=== PATIENT | female | born 1990 | race Caucasian/White ===

== ENCOUNTER 2024-12-19 10:37 | Emergency (ER) | payer OTHER, SELFPAY ==
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
[2024-12-19] VITALS (7 sets, daily range): BP systolic 105–120; BP diastolic 68–88; PULSE 62–100; RESP 16–22; TEMP 37; O2SAT 98–100; BMI 23.7
--- NOTE | 2024-12-19 11:06 | CRLHL7_ITS ---
For Patients: As a result of the Century Cures Act, medical imaging exams and procedure reports are released immediately into your electronic medical record. You may view this report before your referring provider. If you have questions, please contact your health care provider. Indication: Pelvic pain, vaginal bleeding, hx of ovarian torsion Technique: Real-time sonographic images of the pelvis were obtained transvaginally (for better assessment or to better visualize the endometrium) utilizing grayscale, color, and spectral doppler imaging. Comparison: None. Findings: Uterus: Appearance: Normal. Position: Retroflexed. Size: 6.7 x 3.7 x 5.0 cm. Endometrial stripe: 4 mm. Intrauterine device is seen within the endometrial cavity. Right ovary: Size: 5.8 x 2.1 x 2.9 cm. Appearance: Normal morphology. 1.4 x 1.2 x 1.3 centimeter hypoechoic lesion. 2.8 x 1.6 x 2.4 centimeter simple cyst. Preserved blood flow. Left ovary: Size: 4.0 x 1.9 x 1.8 cm. Appearance: Normal morphology. No masses. Preserved blood flow. Free fluid: Trace free fluid is seen anteriorly. Impression: 1. Intrauterine device is seen within the endometrial cavity. 2. 1.4 x 1.2 x 1.3 centimeter hypoechoic right ovarian lesion. Nonspecific cystic ovarian lesions suggestive of but not classic for hemorrhagic cyst, endometrioma or dermoid should be evaluated with repeat ultrasound in 6-12 weeks. If unchanged, hemorrhagic cyst would be unlikely, and continued follow-up with ultrasound or pelvic MRI would be recommended. Surgical consultation could also be considered for lesions that remain uncharacterized, particularly in postmenopausal patients. Adapted from Consensus Recommendations, Radiol:2010;256:943-955. 3. Normal sonographic appearance of the left ovary. Dictated by Sree Gilmore MD @ 12/19/2024 12:09:18 PM (Electronically Signed)
[2024-12-19 11:10] LABS: Appearance Urine Cloudy (Clear)
[2024-12-19] MEDS: ONDANSETRON 2 MG/ML inj 4 MG IVP (11:11)
--- NOTE | 2024-12-19 11:19 | ED.ABDPAIN ---
HPI - Abdominal Pain General Date Seen: 12/19/24 Chief Complaint: Abdominal Pain Stated Complaint: abdominal pain Time Seen by Provider: 12/19/24 10:44 Source: patient Mode of arrival: ambulatory Limitations: no limitations History of Present Illness HPI narrative: Patient is a 34-year-old female with multiple ovarian torsion most recently 4 years ago and multiple kidney stones needing lithotripsy presenting for right lower quadrant abdominal pain/right pelvic pain. She is having difficulty saying if it is more the the pelvis or abdomen that hurts. She states she has had multiple ovarian cysts and multiple portions with most recent 1 being 4 years ago. She has not had 1 since she had IUD placed to help stop all of her ovarian cyst formations. She has also been abnormal uterine bleeding at that time. She states she initially started having pain on Monday but the pain was tolerable and she thought she had a UTI. Has also had some mild vaginal bleeding since then. She does states she has had some malodorous urine and dysuria. Has also noticed hematuria. Has also had previous kidney stones which required lithotripsy in the past. Pain got acutely worse this morning at 04:00 and has been persistent since then. Denies any fevers, chills, chest pain, shortness of breath, diarrhea, constipation, weakness, numbness. No other concerns noted. Related Data Home Medications ?Medication ?Instructions ?Recorded ?Confirmed albuterol 90 mcg/actuation aerosol 90 mcg inhalation Q4H PRN 12/19/24 12/19/24 inhaler fluticasone propionate 50 1 spray intranasal DAILY PRN 12/19/24 12/19/24 mcg/actuation nasal spray,suspension (24 Hour Allergy Relief) multivitamin (Daily Multi-Vitamin 1 tab PO DAILY 12/19/24 12/19/24 tablet) Allergies Allergy/AdvReac Type Severity Reaction Status Date / Time metoclopramide (From Reglan) Allergy Unknown Verified 12/19/24 12:44 Penicillins Allergy Unknown Verified 12/19/24 12:44 sumatriptan (From Imitrex) Allergy Unknown Verified 12/19/24 12:44 morphine Allergy Verified 12/19/24 12:44 Review of Systems Status of ROS Reports: 10 or more systems reviewed and unremarkable except as noted in History and below PFSH PFSH Social History Smoking Status: Current some day smoker What tobacco products do you use: cigarettes How often do you have a drink containing alcohol: monthly or less How often do you have six or more drinks on one occasion: Never AUDIT-C Alcohol total score: 1 Non-prescribed substance use: denies use Exam Narrative: Exam Narrative: Const: Well-nourished, Well-developed, in moderate to severe distress Eyes: PERRL, no conjunctival injection, and symmetrical lids HENT: Atraumatic external nose and ears. Moist mucous membranes. Neck: Symmetric, trachea midline, No thyromegaly. CVS: RRR, No murmurs or gallops. Peripheral pulses 2+ and equal in all extremities RESP: Unlabored respiratory effort. Clear to auscultation bilaterally. GI: Right lower quadrant tenderness, Nondistended, No rebound or guarding. MSK:Extremities w/o deformity, Normal Active ROM Skin: Warm, Dry. No rashes or lesions. Neuro: Normal Muscle tone, No focal neurological deficits. Psych: Awake, Alert, & Oriented x3. Appropriate mood and affect. Const: Vital Signs, click to edit/add: Vital Signs - 24 hr 12/19/24 10:55 12/19/24 11:45 12/19/24 11:57 Temperature 98.6 F Pulse Rate Pulse Rate [Pulse Oximeter] 100 75 Respiratory Rate 22 16 Blood Pressure Blood Pressure [Ri ght Upper Arm] 118/88 115/73 Pulse Oximetry 100 100 99 Oxygen Delivery Me thod Room Air Room Air 12/19/24 12:15 12/19/24 13:04 12/19/24 13:30 Temperature Pulse Rate 75 66 71 Pulse Rate [Pulse Oximeter] Respiratory Rate Blood Pressure 105/80 Blood Pressure [Ri ght Upper Arm] Pulse Oximetry 98 100 100 Oxygen Delivery Me thod 12/19/24 14:00 Temperature Pulse Rate 62 Pulse Rate [Pulse Oximeter] Respiratory Rate 16 Blood Pressure 120/68 Blood Pressure [Ri ght Upper Arm] Pulse Oximetry 100 Oxygen Delivery Me thod Course Vital Signs Vital signs: Initial Vital Signs Temperature 98.6 F 12/19/24 10:55 Temperature Source Temporal Artery Scan 12/19/24 10:55 Pulse Rate 100 12/19/24 10:55 Respiratory Rate 22 12/19/24 10:55 Blood Pressure 118/88 12/19/24 10:55 Blood Pressure Mean 98 12/19/24 10:55 Blood Pressure Position Sitting 12/19/24 10:55 Pulse Oximetry 100 12/19/24 10:55 Oxygen Delivery Method Room Air 12/19/24 10:55 Vital Signs Temperature 98.6 F 12/19/24 10:55 Pulse Rate 100 12/19/24 10:55 Respiratory Rate 22 12/19/24 10:55 Blood Pressure 118/88 12/19/24 10:55 Pulse Oximetry 100 12/19/24 10:55 Oxygen Delivery Method Room Air 12/19/24 10:55 Temperature 98.6 F 12/19/24 10:55 Pulse Rate 62 12/19/24 14:00 Respiratory Rate 16 12/19/24 14:00 Blood Pressure 120/68 12/19/24 14:00 Pulse Oximetry 100 12/19/24 14:00 Oxygen Delivery Method Room Air 12/19/24 11:57 Medications Administered Medications: Discontinued Medications Generic Name Dose Route Start Last Admin Trade Name Conorq PRN Reason Stop Dose Admin Hydromorphone HCl 0.5 mg 12/19/24 11:20 12/19/24 11:30 Hydromorphone 0.5 Mg/0.5 Ml Inj IVP 12/19/24 11:21 0.5 mg ONCE ONE Administration Hydromorphone HCl 0.5 mg 12/19/24 13:07 12/19/24 13:10 Hydromorphone 0.5 Mg/0.5 Ml Inj IVP 12/19/24 13:08 0.5 mg ONCE ONE Administration Ciprofloxacin 400 mg in 200 mls @ 200 mls/hr 12/19/24 13:12 12/19/24 14:57 Ciprofloxacin IVPB 12/19/24 14:11 Infused ONCE ONE Infusion Ketorolac Tromethamine 15 mg 12/19/24 11:05 12/19/24 11:10 Ketorolac 15 Mg/Ml Inj IVP 12/19/24 11:06 15 mg ONCE ONE Administration Ondansetron HCl 4 mg 12/19/24 11:05 12/19/24 11:11 Ondansetron 2 Mg/Ml Inj IVP 12/19/24 11:06 4 mg ONCE ONE Administration Phenazopyridine HCl 200 mg 12/19/24 14:52 12/19/24 14:57 Phenazopyridine Hcl 200 Mg Tablet PO 12/19/24 14:53 200 mg ONCE ONE Administration MDM - Abdominal Pain MDM Narrative Medical decision making narrative: Patient is a 34-year-old female presenting for right lower quadrant pain. This pain could be appendicitis, nephrolithiasis, ovarian torsion. Concerning her history and the acuteness of the ovarian torsion I do believe is important to do an ultrasound right away. This was ordered 1st. Urinalysis was done in triage showing clear signs of UTI. Will also order Toradol and Zofran. She want to try Toradol before other pain medication. Patient was still in pain and required Dilaudid. Ultrasound returned showing no concerning abnormalities. There is a small cyst. No signs of torsion. I do believe CT scan is necessary to rule out anything else that could be of concern. Lab work returned with a slightly elevated white blood cell count at 12.1 but she shows no clear signs of sepsis at this time I do not believe septic workup is necessary. Heart rate improved after pain medication. CT scan shows signs of UTI with diffusely thickened bladder and some [id number] right urothelial enhancement. This is consistent with all of her symptoms. Due to her age though I did speak to her about concern for STDs. She states she has been with her current partner for 2 months and he was negative for STDs when they began dating. She would like tested for STDs though. Self vaginal swabs were ordered. They were only positive for Marlene. She did get a dose of Cipro here in the emergency department. She will be given a dose of fluconazole and discharged with Cipro, Toradol, Percocet, Zofran of scribe's she instymeds Lab Data Labs: Lab Results 12/19/24 12/19/24 12/19/24 Range/Units 10:55 11:04 13:44 WBC 12.10 H (4.50-11.00) K/uL RBC 4.22 (4.00-5.20) m/uL Hgb 13.5 (12.0-16.0) gm/dL Hct 40.0 (33.0-51.0) % MCV 95 (80-100) fL MCH 32 (26-34) pg MCHC 34 (32-36) gm/dL RDW Coeff of Gm 11.6 (11.5-15.5) % Plt Count 295 (140-440) K/uL Neut % (Auto) 75.7 H (42.0-72.0) % Lymph % (Auto) 14.0 L (20-44) % [place] % (Auto) 7.2 (0.0-11.0) % Eos % (Auto) 2.6 (0.0-7.0) % Baso % (Auto) 0.3 (0.0-3.0) % Neut # (Auto) 9.20 H (1.7-7.0) K/uL Lymph # (Auto) 1.70 (0.90-2.90) K/uL [place] # (Auto) 0.90 (0.00-0.90) K/UL Eos # (Auto) 0.30 (0.00-0.50) K/uL Baso # (Auto) 0.00 (0.00-0.30) K/uL Abs Immat Gran (auto) 0.00 (0.00-0.30) K/uL Imm/Tot Granulo (auto) 0.2 % Sodium 142 (135-149) mmol/L Potassium 4.2 (3.6-5.1) mmol/L Chloride 110 (96-114) mmol/L Carbon Dioxide 24 (20-32) mmol/L Anion Gap 8 (7-15) mEq/L BUN 16 (5-24) mg/dL Creatinine 0.7 (0.5-1.5) mg/dL Estimated Creat Clear 99.98 Estimated GFR 115 ml/min Glucose 89 (60-115) mg/dL Calcium 9.8 (8.4-10.6) mg/dL Urine Color Dark yellow (Yellow) Urine Appearance Cloudy A (Clear) Urine pH 7.0 (5.0-8.5) Ur Specific [place] >= 1.030 (1.000-1.030) Urine Protein 3+ A (Negative) Urine Glucose (UA) Negative (Negative) Urine Ketones Negative (Negative) Urine Blood 3+ A (Negative) Urine Nitrite Positive A (Negative) Urine Bilirubin Negative (Negative) Urine Urobilinogen 0.2 (0.2-1.0) Ur Leukocyte Esterase Trace A (Negative) Urine RBC >100 A (0-2) Urine WBC 25-50 A (0-5) Ur Squamous Epith Cells Few (None-Few) Urine Bacteria Many A (None) Urine HCG, Qual Negative (Negative) Vaginal Bacterial Vaginosis Negative (Negative) Vaginal Marlene species DETECTED A (No Detected) Vag C. glabrata/krusei NOT DETECTED (No Detected) Vag T. vaginalis NOT DETECTED (No Detected) C.trachomatis Ampl DNA NOT DETECTED (No Detected) N.gonorrhoeae Ampl DNA NOT DETECTED (No Detected) Imaging Data Transvaginal ultrasound: Attestation: I have reviewed the pertinent imaging results. Radiologist's impression: 1. Intrauterine device is seen within the endometrial cavity. 2. 1.4 x 1.2 x 1.3 centimeter hypoechoic right ovarian lesion. Nonspecific cystic ovarian lesions suggestive of but not classic for hemorrhagic cyst, endometrioma or dermoid should be evaluated with repeat ultrasound in 6-12 weeks. If unchanged, hemorrhagic cyst would be unlikely, and continued follow-up with ultrasound or pelvic MRI would be recommended. Surgical consultation could also be considered for lesions that remain uncharacterized, particularly in postmenopausal patients. Adapted from Consensus Recommendations, Radiol:2010;256:943-955. 3. Normal sonographic appearance of the left ovary. Dictated by Sree Gilmore MD @ 12/19/2024 12:09:[address] scan abdomen and pelvis: Attestation: I have reviewed the pertinent imaging results. Radiologist's impression: 1. No hydronephrosis or obstructing renal calculi. [id number] right urothelial enhancement and moderate urinary bladder wall thickening are compatible with urinary tract infection. Consider correlation with urinalysis. 2. Small to moderate stool burden. Please note that all CT scans at this facility use dose modulation, iterative reconstruction, and/or weight-based dosing when appropriate to reduce radiation dose to as low as reasonably achievable. Dictated by Sree Gilmore MD @ 12/19/2024 1:07:20 PM Discharge Plan Discharge Clinical Impression: Yeast infection of the vagina Urinary tract infection Qualifiers: Urinary tract infection type: site unspecified Hematuria presence: with hematuria Qualified Code(s): N39.0 - Urinary tract infection, site not specified Patient Disposition: Home, Self-Care Condition: Improved Instructions: Urinary Tract Infection in Women (DC) Additional Instructions: Lab work does show you a yeast infection along with the UTI. Follow-up to primary care provider if symptoms are not improving after treatment. Your pain medication, nausea medicine and antibiotics were to instymeds. Return to emergency department for new or worsening symptoms Prescriptions: No Action multivitamin [Daily Multi-Vitamin] Tablet 1 tab PO DAILY fluticasone propionate [24 Hour Allergy Relief] 50 mcg/actuation spray,suspension 1 spray intranasal DAILY PRN Rx Instructions: administer into each nostril albuterol 90 mcg/actuation aerosol 90 mcg inhalation Q4H PRN Follow Up/Referrals: Provider,Not a Local [Primary Care Provider, Family Practice] Stand Alone Forms: Work/School Release, [facility] Info Instructions
[2024-12-19 11:30] LABS: Ur HCG Qualitative* Negative (Negative)
[2024-12-19 11:33] LABS: Hematocrit 40.0 % (33.0-51.0); Hemoglobin* 13.5 gm/dL (12.0-16.0); Immature Granulocytes Pct Auto 0.2 %; Lymphocytes Absolute Auto 1.70 K/uL (0.90-2.90); Mean Corpuscular HGB Conc 34 gm/dL (32-36); Mean Corpuscular Hemoglobin 32 pg (26-34); Mean Corpuscular Volume 95 fL (80-100); RDW Coefficient of Variation % 11.6 % (11.5-15.5); Red Blood Count 4.22 m/uL (4.00-5.20); White Blood Count* 12.10 K/uL (4.50-11.00)
[2024-12-19 11:35] LABS: Immature Granulocytes Abs Auto 0.00 K/uL (0.00-0.30); Slide Review Reflex No
[2024-12-19 11:45] LABS: Chloride* 110 mmol/L (96-114); Sodium* 142 mmol/L (135-149)
[2024-12-19 11:46] LABS: Potassium* 4.2 mmol/L (3.6-5.1)
[2024-12-19 11:48] LABS: Blood Urea Nitrogen* 16 mg/dL (5-24); Creatinine* 0.7 mg/dL (0.5-1.5); Est. Creatinine Clearance* 99.98; Estimated Glomerular Filt Rate 115 ml/min
[2024-12-19 11:49] LABS: Anion Gap 8 mEq/L (7-15); Calcium* 9.8 mg/dL (8.4-10.6); Carbon Dioxide* 24 mmol/L (20-32); Glucose* 89 mg/dL (60-115)
--- NOTE | 2024-12-19 11:59 | CRLHL7_ITS ---
For Patients: As a result of the Century Cures Act, medical imaging exams and procedure reports are released immediately into your electronic medical record. You may view this report before your referring provider. If you have questions, please contact your health care provider. INDICATION: RLQ PAIN. UTI TECHNIQUE: CT of the abdomen and pelvis was obtained with 69 mL of Isovue 370 intravenous contrast. Please note that all CT scans at this facility use dose modulation, iterative reconstruction, and/or weight-based dosing when appropriate to reduce radiation dose to as low as reasonably achievable. COMPARISON: Same day ultrasound. FINDINGS: Lower thorax: Normal. Liver and biliary tree: Normal. Gallbladder: Normal. Spleen: Normal. Pancreas: Normal. Adrenal glands: Normal. Kidneys and ureters: No hydronephrosis or obstructing renal calculi. Tflr-rk-[id number] right urothelial enhancement. Gastrointestinal tract: Paucity of intra-abdominal fat slightly limits evaluation of the bowel. Small to moderate stool burden. No evidence of acute appendicitis. No evidence of bowel obstruction. Peritoneal cavity: Trace nonspecific free fluid within the pelvis. Bladder: Moderate wall thickening. Pelvic organs: Intrauterine device is seen within the uterus. Right adnexal cystic lesion is favored to be physiologic. Vasculature: Normal. Lymph nodes: Normal. Abdominal wall: Normal. Musculoskeletal: Normal. IMPRESSION: 1. No hydronephrosis or obstructing renal calculi. [id number]-[id number] right urothelial enhancement and moderate urinary bladder wall thickening are compatible with urinary tract infection. Consider correlation with urinalysis. 2. Small to moderate stool burden. Please note that all CT scans at this facility use dose modulation, iterative reconstruction, and/or weight-based dosing when appropriate to reduce radiation dose to as low as reasonably achievable. Dictated by Sree Gilmore MD @ 12/19/2024 1:07:20 PM (Electronically Signed)
--- OUTSIDE RECORDS SUMMARY | 2024-12-19 12:01 | XMS_ITS | Patient Health Record ---
Author Organization [facility] Address [address] [place] [address] [address] [place] [address] Care Team Providers Care Accounts Receivable Assistant Name Role Phone Toneyantonio Amarjit Primary Care Provider UnavailThom Rivera Unavailable [phone] Magdalena Lanza DC Unavailable Unavailable Carlos Caruso Unavailable [phone] Agnes Dowling Unavailable [phone] Ricki Quesada Unavailable [phone] Rod Beckwith Unavailable [phone] Junie Sheppard Unavailable [phone] Brynn Moon Unavailable Unavailable Allergies Allergen (clinical drug ingredient) Drug/Non Drug Allergy documented on EMR Reaction Allergy Type Onset Date Status sumatriptan Imitrex headache Drug Allergy Activ e metoclopramide Reglan extreme anxiety Drug Allergy Active morphine Morphine loss of concentration, nausea Drug Allergy Active Penicillin anaphylaxis Drug Allergy Acti ve Results Component Value Reference Range Notes MRI : Lumbar Reviewed date:08/23/2024 01:12:13 PM Interpretation: Performing Lab: Notes/Report: Original Report EXAM: MR LUMBAR SPINE WITHOUT CONTRAST 1.5T CLINICAL INFORMATION: [Lower back pain TECHNICAL INFORMATION: T1, T2 and STIR sagittal sections through the lumbar spine with T1 coronal sections, T1 and T2 FSE stacked axial sections and T2 FSE angled axial sections through L5-S1. COMPARISON IMAGES: X-rays lumbar spine on 01/26/2023 INTERPRETATION: Segmentation and Alignment: Lordotic alignment of five lumbar-type vertebrae. Mild levocurvature of lumbar spine. Sacrum and Sacroiliac joints: Normal sacrum and sacroiliac joints. L5-S1: No significant focal abnormality. L4-L5: No significant focal abnormality. L3-L4: No significant focal abnormality. L2-L3: No significant focal abnormality. L1-L2: No significant focal abnormality. Imaged lower thoracic spine generally unremarkable without significant central or foraminal stenosis. Conus: Normal signal intensity within the conus medullaris. No intradural mass or arachnoidal adhesions. Osseous structures: Normal signal intensity within the vertebral marrow spaces. No fracture or avulsion. No osteolytic or destructive bone lesion. Paraspinous soft tissues: No paraspinous soft tissue mass or fluid collection. CONCLUSION: Unremarkable MRI lumbar spine without evidence of central or foraminal stenosis. No nerve impingement. Read by: Dr. LORENE ESCUDERO DO Reviewed and Electronically Signed by: Dr. LORENE ESCUDERO DO Reason For Referral Reason REHAB PT and OT: MED X CERVICAL-LUMBAR Please call patient to schedule Diagnosis 1 Cervicalgia (M54.2) Diagnosis 2 Low back pain, unspe cified (M54.50) Referral Organization [facility] Referring Provider First Name Thom Referring Provider Last Name David Referring Provider Speciality Pain Medic ine Referred Organization [facility] Referred Provider Nidhi Ashby Referred Address [address] [place], [place],[address], Referred Provider Specialty Rehabilitati on General Notes Sadie Purdy 07/30/19 25 11:45:38 AM >[facility] no PA req for first combined 25 PT/OT vists. Ok to schedule. Please attach appts to incoming referral.Connie Katie 07/30/2024 08:27:03 AM >Text sent, TE sent to Scheduling 3. Referral Priority Routine Reason [facility] PT/OT visits Diagnosis 1 Other chronic pain ( G89.29) Referral Organization [facility] Referring Provider First Name Chun Referring Provider Last Name Scott Referring Provider Speciality Occupation al Medicine Referred Organization [facility] Referred Provider Chun Chavez Referred Address [address] [place], [place],[address], Referred Provider Specialty Occupational Medicine Referral Priority Routine Medications Medication SIG (Take, Route, Fr equency, Duration) Notes Start Date End Date Status Ibuprofen 200 MG 1 tablet with food o r milk Orally as needed Active Multivitamin - 1 tablet Orally Once a day Active Vitamin B12 daily Active Albuterol prn Active predniSONE 10 MG 1 tablet with food o r milk Orally Three times a day for 5 days. Twice a day for 5 days. Once a day for 5 days.; Duration: 15 days 07/26/2024 Active Social History Tobacco Use: Social History Observation Description Date Details (start date - stop date) Current Smoker NA - NA Tobacco Control (Standard) Question Answer Notes Tobacco use: Current smoker How often do you smoke cigarettes? Some days, bu t not every day How many cigarettes a day do you smoke? 5 or les s AUDIT-C (Standard) Question Answer Notes Did you have a drink contain ing alcohol in the past year? Yes How often did you have a dri nk containing alcohol in the past year? Monthly or less (1 point) How many drinks did you have on a typical day when you were drinking in the past year? 1 or 2 drinks (0 point) How often did you have six o r more drinks on one occasion in the past year? Never (0 point) Points 1 Interpretation Negative Problems Problem Type SNOMED Code ICD Code Onset Dates Problem Status W/U Status Risk Notes Problem Chronic pain (68179927) Other chronic pain (G89.29) Active confirmed Problem Cervical spondylosis without myelopathy (491094219) Spondylosis without myelopathy or radiculopathy, cervical region (M47.812) Active confirmed Problem Cervical radiculopathy (26484563) Radiculopathy, cervical region (M54.12) Active confirmed Problem Cervicalgia (66497147) Cervicalgia (M54.2) Active confirmed Problem Low back pain (217844034) Low back pain, unspecified (M54.50) Active confirmed Problem Migraine (G43.909) Active confirmed Vital Signs Blood pressure diastolic 72 mm Hg 07/26/2024 Height 65 in 07/26/2024 Blood pressure systolic 110 mm Hg 07/26/2024 Weight 138 lbs 07/26/2024 BMI 22.96 kg/m2 07/26/2024 Procedures Procedure Date Ordered Date Performed Result Body Sit e Intervention: 07/26/2024 08/05/2024 Sched 08/30 Intervention: 09/25/2024 09/26/2024 sched 09/26 Encounters Encounter Location Date Provider Diagnosis [facility] [address] [facility] [address] [address] 07/26/2024 Thom Hernandez Cervicalgia M54.2 ; Low back pain, unspecified M54.50 ; Migraine G43.909 ; Spondylosis without myelopathy or radiculopathy, cervical region M47.812 ; Radiculopathy, cervical region M54.12 and Other chronic pain G89.29 [facility] [address] [place] [address] 08/15/2024 Brynn Moon Cervicalgia M54.2 ; Low back pain, unspecified M54.50 ; Migraine G43.909 and Radiculopathy, cervical region M54.12 [facility] [address] [place] [address] 08/20/2024 Agnes Applebee Low back pain, unspecified M54.50 ; Cervicalgia M54.2 and Migraine G43.909 [facility] [address] [place] [address] 08/22/2024 Junie Sheppard Low back pain, unspecified M54.50 ; Cervicalgia M54.2 and Migraine G43.909 [facility] [address] [place] [address] 08/27/2024 Agnes Applebee Low back pain, unspecified M54.50 ; Cervicalgia M54.2 and Migraine G43.909 [facility] [address] [address] [address] 08/30/2024 Thom Hernandez Radiculopathy, cervical region M54.12 [facility] [address] [place] [address] 09/20/2024 Ricki Myraon Low back pain, unspecified M54.50 ; Cervicalgia M54.2 and Migraine G43.909 [facility] [address] [place] [address] 09/26/2024 Junie Silver Low back pain, unspecified M54.50 ; Cervicalgia M54.2 and Migraine G43.909 [address] [facility] [address] [place] [address] 09/26/2024 Thom Hernandez [facility] [address] [place] [address] 10/01/2024 Ricki Narveson Low back pain, unspecified M54.50 ; Cervicalgia M54.2 and Migraine G43.909 [facility] [address] [place] [address] 10/11/2024 Junie Nickerson Low back pain, unspecified M54.50 ; Cervicalgia M54.2 and Migraine G43.909 [facility] [address] [place] [address] 10/22/2024 Junie Nickerson Low back pain, unspecified M54.50 ; Cervicalgia M54.2 and Migraine G43.909 [facility] [address] [place] [address] 10/29/2024 Junie Silver Low back pain, unspecified M54.50 ; Cervicalgia M54.2 and Migraine G43.909 [facility] [address] [place] [address] 11/01/2024 Ricki Narveson Low back pain, unspecified M54.50 ; Cervicalgia M54.2 and Migraine G43.909 [facility] [address] [place] [address] 11/08/2024 Junie Nickerson Low back pain, unspecified M54.50 ; Cervicalgia M54.2 and Migraine G43.909 [facility] [address] [place] [address] 11/22/2024 Junie Silver Low back pain, unspecified M54.50 ; Cervicalgia M54.2 and Migraine G43.909 [facility] [address] [place] [address] [address] [place] [address] 06/04/2024 Carlos Caruso [facility] [address] [place] [address] 07/30/2024 Thom Hernandez [address] [facility] [address] [address] [place] [address] 08/27/2024 Thom Hernandez [facility] [address] [place] [address] [address] [place] [address] 08/28/2024 Thom Hernandez [facility] [address] [place] [address] [address] [place] [address] 09/23/2024 Thom Hernandez [facility] [address] [place] [address] 11/01/2024 Thom Hernandez [address] [facility] [address] [place] [address] 07/11/2024 Carlos Caruso [address] [facility] [address] [place] [address] 07/11/2024 Carlos Caruso [facility] [address] [place] [address] [address] [place] [address] 09/05/2024 Thom Hernandez [facility] [address] [place] [address] [address] [place] [address] 10/03/2024 Thom Hernandez [facility] [address] [place] [address] [address] [place] [address] 10/24/2024 Thom Hernandez Assessments Encounter Date Diagnosis (ICD Code) Assessment Notes Treatment Notes Treatment Clinical Notes Section Notes 07/26/2024 Cervicalgia (ICD-10 - M54.2) 07/26/2024 Low back pain, unspecified (ICD-10 - M54.50) 08/15/2024 Cervicalgia (ICD-10 - M54.2) 08/20/2024 Low back pain, unspecified (ICD-10 - M54.50) 08/22/2024 Low back pain, unspecified (ICD-10 - M54.50) 08/27/2024 Low back pain, unspecified (ICD-10 - M54.50) 08/30/2024 Radiculopathy, cervical region (ICD-10 - M54.12) 09/20/2024 Low back pain, unspecified (ICD-10 - M54.50) 09/26/2024 Low back pain, unspecified (ICD-10 - M54.50) 10/01/2024 Low back pain, unspecified (ICD-10 - M54.50) 10/11/2024 Low back pain, unspecified (ICD-10 - M54.50) 10/22/2024 Low back pain, unspecified (ICD-10 - M54.50) 10/29/2024 Low back pain, unspecified (ICD-10 - M54.50) 11/01/2024 Low back pain, unspecified (ICD-10 - M54.50) 11/08/2024 Low back pain, unspecified (ICD-10 - M54.50) 11/22/2024 Low back pain, unspecified (ICD-10 - M54.50) 11/22/2024 Cervicalgia (ICD-10 - M54.2) 11/08/2024 Cervicalgia (ICD-10 - M54.2) 10/29/2024 Cervicalgia (ICD-10 - M54.2) 11/01/2024 Cervicalgia (ICD-10 - M54.2) 10/22/2024 Cervicalgia (ICD-10 - M54.2) 10/11/2024 Cervicalgia (ICD-10 - M54.2) 10/01/2024 Cervicalgia (ICD-10 - M54.2) 08/27/2024 Cervicalgia (ICD-10 - M54.2) 09/26/2024 Cervicalgia (ICD-10 - M54.2) 09/20/2024 Cervicalgia (ICD-10 - M54.2) 08/20/2024 Cervicalgia (ICD-10 - M54.2) 08/22/2024 Cervicalgia (ICD-10 - M54.2) 08/15/2024 Low back pain, unspecified (ICD-10 - M54.50) 07/26/2024 Migraine (ICD-10 - G43.909) 07/26/2024 Spondylosis without myelopathy or radiculopathy, cervical region (ICD-10 - M47.812) 08/15/2024 Migraine (ICD-10 - G43.909) 08/20/2024 Migraine (ICD-10 - G43.909) 08/22/2024 Migraine (ICD-10 - G43.909) 08/27/2024 Migraine (ICD-10 - G43.909) 09/20/2024 Migraine (ICD-10 - G43.909) 10/01/2024 Migraine (ICD-10 - G43.909) 09/26/2024 Migraine (ICD-10 - G43.909) 10/11/2024 Migraine (ICD-10 - G43.909) 10/22/2024 Migraine (ICD-10 - G43.909) 10/29/2024 Migraine (ICD-10 - G43.909) 11/08/2024 Migraine (ICD-10 - G43.909) 11/01/2024 Migraine (ICD-10 - G43.909) 11/22/2024 Migraine (ICD-10 - G43.909) 07/26/2024 Radiculopathy, cervical region (ICD-10 - M54.12) 08/15/2024 Radiculopathy, cervical region (ICD-10 - M54.12) 07/26/2024 Other chronic pain (ICD-10 - G89.29) Junie presents to the clinic for an evaluation regarding her chronic pain. I have reviewed her symptoms and current medications as well as her available imaging. At this time, I do believe she would benefit from MEDX therapy. I will refer her to [facility]. We discussed procedure options and she would like to proceed with C5-6 JESSICA. We will consider a MBB/RFA work up going forward. For actute relief, she is interested in starting a Prednisone burst. Regarding her low back, I do believe updated imaging is necessary. I will order a lumbar MRI to [facility]. This treatment plan was reviewed with Junie, and she was agreeable. She will return as needed. I will continue to monitor her progress, adjusting her treatment plan as necessary. Plan: 1. Referral to [facility] 2. Order C5-6 JESSICA 3. Consider MBB/RFA 4. Start Prednisone 5. Order lumbar MRI 6. Follow up as needed Discharge instructions reviewed verbally. Discussed the risks/benefits of prescribed medication. The patient was instructed to call with any questions, problems or concerns. 07/26/2024 Other I, Koko Ortiz , am serving as a scribe to document services personally performed by Thom Hernandez MD, based upon my observations and the provider's statements to me. All documentation has been reviewed by the aforementioned doctor prior to being entered into the official medical record. I, Thom Hernandez MD attest that the above named individual is acting in scribe capacity, has observed my performance of the services and has documented them in accordance with my direction. The documentation recorded by the scribe accurately reflects the service I personally performed and the decisions made by me. Thank you very much Dr. Lanza for kindly referring Junie to our practice. It is a pleasure to participate in her care. Please feel free to contact me with any questions or concerns. 07/11/2024 Other I, Kierra jimenez, am serving as a scribe to document services personally performed by Rod Beckwith CNP, based upon my observations and the provider's statements to me. All documentation has been reviewed by the aforementioned PUPIL PERSONNEL WORKER as well as Thom Hernandez MD, prior to being entered into the official medical record. IThom MD attest that the above named individual is acting in scribe capacity, has observed Rod Beckwith's performance of the services and has documented them in accordance with his direction. The documentation recorded by the scribe accurately reflects the service Rod Beckwith CNP and Thom Hernandez MD personally performed and the decisions made by them. Plan Of Treatment No Information Insurance Providers Payer Name Payer Address Payer Phone Subscriber Number Group Number Insured Name Patient Relationship to Insured Coverage Start Date Coverage End Date [facility] [address] [address] [place] [phone] [id number] Junie Epperson Self - patient is the insured Medical (General) History Surgical History Surgery Date(Month/Year) ovarian cyst rupture surgery right arm procedure Hospitalization History Reason Date(Month/Year) surgical reasons
[2024-12-19] MEDS: CIPROFLOXACIN 400 MG/200 ML PIGGYBACK 200 MG IVPB (13:55)
[2024-12-19 14:56] LABS: Bacterial Vaginosis* Negative (Negative); Candida glab/krus NOT DETECTED (No Detected)
[2024-12-19] MEDS: PHENAZOPYRIDINE HCL 200 MG TABLET PO (14:57)
[2024-12-19 15:25] LABS: Chlamydia DNA Amplified* NOT DETECTED (No Detected); GC DNA Amplified* NOT DETECTED (No Detected)
[2024-12-19] MEDS: FLUCONAZOLE 150 MG TABLET PO (15:40)
== END 2024-12-19 16:14 | disposition home or self-care (01) ==
PROVIDERS: Emergency Provider Student in an Organized Health Care Education/Training Program
DX: N39.0 Urinary tract infection, site not specified (principal); B37.31 Acute candidiasis of vulva and vagina
CPT/HCPCS: 36415; 74177; 76830; 80048; 81001; 81025; 81513; 85025; 87086; 87481; 87491; 87591; 87661; 93976; 94761; 96365; 96375; 99284; A9270; J0744; J1171; J1885; J2405; Q9967

== ENCOUNTER 2025-04-03 10:03 | Outpatient (CLI) | payer OTHER, SELFPAY ==
--- NOTE | 2025-04-03 10:00 | CRLHL7_ITS ---
For Patients: As a result of the Cures Act, medical imaging exams and procedure reports are released immediately into your electronic medical record. You may view this report before your referring provider. If you have questions, please contact your health care provider. Indication: Chronic sinus disease Technique: Performed without IV contrast Comparison: None available Findings: Frontal sinuses: Clear. Ethmoid sinuses: Minimal mucosal thickening bilaterally. Maxillary sinuses: 1.1 cm mucous retention cyst left maxillary sinus inferiorly. Minimal mucosal thickening in both maxillary sinuses. The maxillary sinus drainage pathways are patent on both sides. Sphenoid sinuses: Minimal mucosal thickening bilaterally. Patent sphenoethmoidal recesses. Nasal Cavity: Minimal S shaped curvature of the nasal septum. No polyps. No gracie bullosa. No TMJ abnormalities identified. The visualized portions of the orbits, intracranial contents and upper soft tissue neck are grossly negative. Impression: 1. Minimal bilateral sinus disease. 2. Adenoid tonsils are not hypertrophied. Please note that all CT scans at this facility use dose modulation, iterative reconstruction, and/or weight-based dosing when appropriate to reduce radiation dose to as low as reasonably achievable. Dictated by Nirmal Gonzalez MD @ 04/03/2025 11:40:40 AM (Electronically Signed)
--- NOTE | 2025-04-03 10:15 | CRLHL7_ITS ---
For Patients: As a result of the Century Cures Act, medical imaging exams and procedure reports are released immediately into your electronic medical record. You may view this report before your referring provider. If you have questions, please contact your health care provider. INDICATION: Anesthesia of skin TECHNIQUE: Non-contrast sagittal T1, axial FLAIR, FSE T2, DWI, posterior fossa CISS images provided. Supplemental post contrast T1 weighted axial and coronal high resolution images through the posterior fossa with fat saturation and post contrast whole head axial T1 weighted images submitted. Contrast: 15 cc Dotarem IV contrast. COMPARISON: No comparisons. FINDINGS: The ventricles, sulci and gyri are of normal size, shape and contour for age. Midline structures are centrally located. No convincing evidence of suspicious intra- or extra-axial fluid collections. No regions of restricted diffusion. Expected flow-voids within the cavernous carotids and basilar artery. No suspicious masses within the internal auditory canals. The cerebellopontine angles, internal auditory canals, otic capsule structures, and temporal bone structures are grossly normal. A small venous loop contacts the mid segment of the left trigeminal nerve cisternal segment without mass effect. No suspicious regions of abnormal parenchymal enhancement. The pituitary gland, optic chiasm, pineal gland, and cerebellar tonsils are unremarkable. Mild polypoid mucosal thickening in the left maxillary sinus. IMPRESSION: 1. No radiographic evidence of acute intracranial abnormalities. 2. A small venous loop contacts the mid segment of the left trigeminal nerve cisternal segment without mass effect. 3. No pathologic enhancement. 4. Unremarkable MRI of the brain parenchyma. Dictated by Nirmal Love MD @ 04/03/2025 2:55:07 PM (Electronically Signed)
== END 2025-04-03 10:04 | disposition home or self-care (01) ==
PROVIDERS: Visit Provider Physician Assistant
DX: R09.81 Nasal congestion (principal); R51.9 Headache, unspecified; R20.0 Anesthesia of skin; R29.810 Facial weakness
CPT/HCPCS: 70486; 70553; A9575